=== PATIENT | female | born 2000 | race African-American/Black ===

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

== ENCOUNTER 2022-02-22 22:17 | Emergency (ER) | payer OTHER, SELFPAY ==
[2022-02-22 22:18] VITALS: BP 123/69; PULSE 79; RESP 16; TEMP 36.2; O2SAT 100; BMI 23.2
--- NOTE | 2022-02-22 22:50 | EDS_ITS ---
HPI History of Present Illness Chief Complaint: Chest Pain Informant: patient Onset/Context/Timing Onset: Hours (several) Activity at onset: gradual and onset Timing: Continuous and Waxes and wanes Current Severity: Moderate Maximum Severity: Severe Worsened By: Nothing Relieved By: Nothing Associated Symptoms: Positive for Nausea; Negative for Vomiting, Diaphoresis, Dyspnea, Cough, Lightheadedness or Palpitations Narrative Narrative: Patient states about 30 or 45 minutes after eating [employer] tonight, she started having discomfort in her lower chest/upper abdomen along with some nausea that felt like a band all the way around to her bra line and across her back. No urinary symptoms. No vomiting. No dyspnea but she states it hurts worse to take a really deep breath and to move, she points to her lower sternum where this discomfort is. She has no known medical problems and she is a college student at the local college. She has never had this before. The pain was severe and all the way across and around. No history of any abdominal surgeries in the past. She states that the discomfort has let up, she has not taken anything for it except for some antiacid it was given to her by the wellness center but it did not seem to help quickly. [facility] Medical History Cubital tunnel syndrome on left Home Medications NK 02/22/22 [History Last Taken Unknown] Allergy/AdvReac Type Severity Reaction Status Date / Time latex Allergy Itching Verified 02/22/22 22:17 pineapple Allergy Hives Verified 02/22/22 22:17 Social History Smoking Status: Never smoker ROS ROS ED Constitutional Constitutional ED: Denies chills or fever(s) Eyes Eyes: Denies change in vision or diplopia ENT ENT ED: Denies rhinorrhea or sore throat Cardiovascular Cardiovascular: Reports chest pain; Denies palpitations Respiratory/Chest Respiratory/Chest: Denies cough or dyspnea Gastrointestinal Gastrointestinal: Reports abdominal pain and nausea; Denies diarrhea or vomiting Genitourinary Genitourinary ED: Denies dysuria or hematuria Musculoskeletal Musculoskeletal: Reports back pain; Denies neck pain Integumentary Denies abscess or rash Neurologic Neurologic: Denies headache(s), paresthesias or weakness Psychiatric Psychiatric: Denies anxiety or suicidal thoughts EXAM Physical Exam Const Vital Signs: 02/22/22 22:18 02/23/22 00:30 Temperature 97.2 F L Temperature Source Temporal Pulse Rate 79 53 L Respiratory Rate 16 16 Blood Pressure 123/69 H 101/63 Blood Pressure Mean 87 75 Pulse Ox 100 99 Oxygen Delivery Method Room Air Room Air Positive well nourished and well developed General Appearance ED: well developed and NAD HEENT Reports moist mucous membranes normocephalic and atraumatic Eyes PERRL and EOMs intact bilaterally Neck full ROM and supple Resp normal respiratory effort and clear to auscultation bilaterally Cardio regular rate, regular rhythm and no murmurs GI non-distended GI Narrative: Moderate-severe tenderness epigastrium and right upper quadrant, less tender left upper quadrant, the rest of the abdomen is benign and nontender. No palpable masses. No guarding or rebound. Auscultation: normoactive bowel sounds Palpation: soft Back/Spine no CVA tenderness General Back: other FROM Extremity normal to inspection General Extremety ED: Negative for edema, pulses abnormal or tenderness General Extremity: Negative for edema or pulses abnormal Neuro oriented x3, CN's II-XII intact bilaterally and no sensory deficits noted Sensorium / Orientation: awake and alert Motor Exam: strength 5/5 throughout Skin no rashes or lesions noted and no wounds MDM MDM MDM Narrative Medical decision making narrative: Patient's symptoms are suspicious for biliary colic, although at 22 years old, healthy with a BMI of 23 she certainly does not fit the typical profile. She does not know if she has strong family history of gallstones. I was able to obtain an ultrasound, but it shows a contracted gallbladder, and no other acute abnormalities except for an incidental possible cystic mass in the tail of the pancreas. Since patient is at the local [employer] and has a PCP in [place] where she is from, we obtained the next recommended imaging test while she was here, CT with IV contrast. It confirms a 5.5 cm mass in the tail of the pancreas that is cystic in nature, differential is wide open here including benign and malignant etiologies which I discussed with the patient. She does not have a history of pancreatitis, nor did she have acute pancreatitis now, and I suspect that this is an incidental finding and not related to her abdominal pain. She will need to have further work-up, radiology is recommending an MRI next. Patient prefers to follow-up when she gets home in [place] soon for winter break, or she can follow-up with the wellness center to see if they could do other imaging, I would probably do a fasting ultrasound of her gallbladder next to rule out stones, and/or HIDA scan if she continues to have episodes of pain, this 1 was triggered by a fatty meal about an hour or so afterwards consistent with biliary colic. Discussed all this with her in addition to a fat-free diet, and reasons to return to the ER. She understands and is comfortable with this overall plan. Lab Data Attestation: I reviewed the patient's lab results. Labs: Laboratory Results - last 24 hr 02/22/22 02/22/22 02/23/22 23:02 23:02 00:20 WBC 8.3 RBC 3.80 L Hgb 11.5 L Hct 34.0 L MCV 89.5 MCH 30.3 MCHC 33.8 RDW Std Deviation 45.0 H RDW Coeff of Saleem 13.8 Plt Count 298 MPV 10.0 Immature Gran % (Auto) 0.600 Neut % (Auto) 57.2 Lymph % (Auto) 29.6 [place] % (Auto) 8.7 Eos % (Auto) 3.4 Baso % (Auto) 0.5 Absolute Neuts (auto) 4.8 Absolute Lymphs (auto) 2.46 Nucleated RBC % 0 Sodium 140 Potassium 3.8 Chloride 107 Carbon Dioxide 27.0 Anion Gap 6 BUN 10 Creatinine 0.88 Estim Creat Clear Calc 91.76 Est GFR (MDRD) Af Amer 105 Est GFR (MDRD) Non-Af 87 BUN/Creatinine Ratio 11.4 Glucose 106 Calcium 8.8 Total Bilirubin 0.60 AST 33 ALT 24 Alkaline Phosphatase 47 Troponin I High Sens 8 Total Protein 6.9 Albumin 3.6 Globulin 3.3 Albumin/Globulin Ratio 1.1 Lipase 98 Urine Color Yellow Urine Clarity Clear Urine pH 7.0 Ur Specific [place] 1.010 Urine Protein Negative Urine Glucose (UA) Normal Urine Ketones Negative Urine Occult Blood 10 H Urine Nitrite Negative Urine Bilirubin Negative Urine Urobilinogen Normal Ur Leukocyte Esterase 25 H Urine RBC 0 SEEN Urine WBC 0 SEEN Ur Squamous Epith Cells 5-10 SEEN Urine Bacteria 1+ Urine Mucus 0 SEEN Urine Test Negative Radiography Diagnostic Testing: Clinical Impression(s) from Imaging Studies Gallbladder Ultrasound 02/22/22 22:50 IMPRESSION: Possible complex cystic mass within the pancreas. Recommend follow-up CT of the abdomen with IV contrast nonemergently. Electronically Signed: Malcolm Crooks MD at 23:51 EST Reading Location ID and State: [address] [place] [address] , Service support , Chest X-Ray 02/22/22 23:25 IMPRESSION: Normal x-ray examination of the chest. Electronically Signed: Malcolm Crooks MD at 23:38 EST Reading Location ID and State: [address] [place] [address] , Service support , Abdomen/Pelvis CT 02/23/22 23:59 IMPRESSION: Pancreatic cystic mass 5.5 cm. Differential includes pancreatic pseudocyst, and neoplasm benign and malignant etiologies. Nonemergent MRI recommended for further characterization. Electronically Signed: Angela Grey MD at 1:20 EST , Rhythm Strip Rhythm Strip: Sinus Rhythm Rate: 60 Ectopy: None EKG Initial EKG: Attestation: I personally reviewed and interpreted this EKG as follows: Interpretation: Sinus Rhythm and No Acute Injury Pattern Comments: Normal EKG Discharge Plan Triage Chief Complaint: Chest Pain ED Provider: Livan Bruno Dx/Rx/DC Orders Clinical Impression: Pancreatic mass, Acute upper abdominal pain, Chest pain, unspecified Instructions: ED Abdominal Pain Gallstone Poss, ED Diet, Low Fat, ED Epigastric Pain Uncertain Cause Prescriptions: No Action NK Primary Care Provider: Gautam Cruz Referrals: Gautam Cruz MD [Primary Care Provider] - Doctor,Your [Non-Staff] - As soon as possible (and/or Wellness Center to see if they can further your testing sooner (if you want, or continue to have ren n/episodes)) Activity Restrictions/Additional Instructions: Consider low-fat/fat-free diet for the next 48 hours or so to decrease chance of recurrent pain. Disposition Disposition: Home, Self Care
--- NOTE | 2022-02-22 22:50 | US_ITS ---
STUDY: ABDOMINAL ULTRASOUND - RIGHT UPPER QUADRANT REASON FOR VISIT: Female, 22 years old upper abd pain TECHNIQUE: Ultrasound evaluation of the right upper quadrant was performed with real-time and static baltazar-scale imaging. TECHNICAL QUALITY: Adequate. COMPARISON: None. FINDINGS: Liver: The liver measures 16 cm. There is normal echogenicity of the liver. The bile ducts are within normal limits. There is hepatic color flow. The direction of portal flow is hepatopetal. There is no demonstrated mass lesion. Gallbladder: Contracted Common Bile Duct (C.B.D.): The common bile duct measures 3 mm. Pancreas: Complex septated cystic mass within or adjacent to the pancreatic tail measuring 4.7 x 3.7 x 3.9 cm. Right Kidney: Normal size of the right kidney. The right kidney measures 9.8 cm. Normal renal cortex. The right cortex measures 1.6 cm. There is no demonstrated renal mass or cyst. There is no right hydronephrosis. US/Gallbladder IMPRESSION: Possible complex cystic mass within the pancreas. Recommend follow-up CT of the abdomen with IV contrast nonemergently. Electronically Signed: Malcolm Crooks MD at 23:51 EST ,
[2022-02-22] MEDS: Ondansetron 4 MG/2 ML Vial IV (23:04)
[2022-02-22] MEDS: Ketorolac 30 MG/ML Syringe IV (23:04)
--- NOTE | 2022-02-22 23:25 | RAD_ITS ---
STUDY: X-RAY CHEST REASON FOR EXAM: Female, 22 years old. chest pain TECHNIQUE: Frontal and lateral views of the chest. COMPARISON: None. FINDINGS: The lungs are clear and expanded. There is no demonstrated pleural abnormality. Normal size heart. Normal mediastinum and fanny. Normal visualized pulmonary arteries. Normal visualized aortic arch and descending thoracic aorta. Normal visualized thoracic spine. Normal visualized ribs, clavicles, and shoulders. There is no demonstrated abnormality of the visualized soft tissue structures of the upper abdomen. RAD/Chest PA and Lateral IMPRESSION: Normal x-ray examination of the chest. Electronically Signed: Malcolm Crooks MD at 23:38 EST ,
[2022-02-22 23:28] LABS: Absolute Lymphocyte Count 2.46 X10^3/uL (0.83-4.51); Absolute Neutrophil Count 4.8 X10^3/uL (2.0-7.7); Basophil# 0.04 X10^3/uL; Basophil% 0.5 % (0-1); Eosinophil# 0.28 X10^3/uL; Eosinophils% 3.4 % (0-5); Hemoglobin 11.5 g/dL (12.0-15.0); Lymphocyte # 2.46 X10^3/ul (0.83-4.51); Lymphocyte % 29.6 % (19-41); Mean Corp Hgb Conc 33.8 g/dL (32-36); Mean Corpuscular Hgb 30.3 pg (27.0-32.0); Mean Corpuscular Volume 89.5 fL (81-99); Monocyte# 0.72 X10^3/uL; Monocyte% 8.7 % (0-10); NRBC Flagged by Analyzer 0 % (0-5); Neutrophil # 4.77 X10^3/uL (2.7-7.7); Neutrophil % 57.2 % (47-70); Platelet Count 298 K/mm3 (150-450); RBC Distribution Width CV 13.8 % (11.6-14.6); White Blood Count 8.3 K/mm3 (4.4-11.0)
[2022-02-22 23:31] LABS: ALB/GLOB Ratio 1.1 RATIO (0.9-2.4); AST(SGOT) 33 U/L (15-37); Alanine Aminotransfer ALT/SGPT 24 U/L (13-56); Albumin, Serum 3.6 g/dL (3.2-5.0); Alkaline Phosphatase 47 U/L (45-117); Anion Gap 6 (5-15); BUN 10 mg/dL (7-18); BUN/Creat Ratio 11.4 RATIO (10-20); Calcium,Total 8.8 mg/dL (8.5-10.1); Chloride 107 mmol/L (98-107); Creatinine, Serum 0.88 mg/dL (0.55-1.02); EST Glomerular Filtration Rate 87 mL/min (>60); Est Glom Filt Rate - Afr Amer 105 mL/min (>60); Estimated Creatinine Clearance 91.76 ml/min; Globulin 3.3 g/dL (2.2-4.2); Glucose 106 mg/dL (74-106); Lipase 98 U/L (73-393); Potassium 3.8 mmol/L (3.5-5.1); Protein, Total 6.9 g/dL (6.4-8.2); Sodium Level 140 mmol/L (136-145); Troponin-I HS 8 pg/mL (3.0-54.0)
[2022-02-22] MEDS: 0.9% Normal Saline 1,000 ML 125 ML IV (23:34)
[2022-02-23 00:28] LABS: Mucous, Urine 0 SEEN /hpf (<or=2+); Red Blood Cells-Urine 0 SEEN /hpf (0-5); White Blood Cells 0 SEEN /hpf (0-5)
[2022-02-23 00:30] VITALS: BP 101/63; PULSE 53; RESP 16; O2SAT 99
[2022-02-23 00:30] LABS: Color, Urine Yellow (Yellow); Glucose, Dipstick Normal (Normal); Ketone-Dipstick Negative (Negative); Leukocyte Esterase-Dipstick 25 /ul (Negative); Nitrite-Dipstick Negative (Negative); Occult Blood-Urine 10 /ul (Negative); Protein-Dipstick Negative (Negative); Urine Bilirubin Dipstick Negative (Negative); Urine Clarity Clear (Clear); Urine Urobilinogen Normal (Normal)
[2022-02-23 00:34] LABS: Internal QC Validated? YES +Cl - CLEAR BKGD; Pregnancy, Urine Negative Negative
[2022-02-23 00:43] LABS: Bacteria 1+ /hpf (None Seen); Squamous Epithelial Cells - UA 5-10 SEEN /hpf (5-10)
[2022-02-23 02:13] VITALS: BP 103/64; PULSE 55; RESP 15; O2SAT 99
--- NOTE | 2022-02-23 23:59 | CT_ITS ---
STUDY: CT ABDOMEN AND PELVIS WITH CONTRAST REASON FOR EXAM: Female, 22 years old. upper abd pain, abn us pancreas RADIATION DOSAGE (If Supplied By Facility): CTDIvol = ( 9.37 ) mGy, DLP = ( 450.17 ) mGycm TECHNIQUE: Transaxial images were obtained from the dome of the diaphragm to the symphysis pubis without oral contrast. IV 100mL Isovue-370 was administered. Sagittal and coronal images were reconstructed. Individualized dose optimization techniques were used for this CT. COMPARISON: None. FINDINGS: LOWER CHEST: Unremarkable. LIVER: Unremarkable. GALLBLADDER/BILE DUCTS: Gallbladder contracted. PANCREAS: There is a well defined 5.5 x 4.3 x 4.4 cm low-attenuation cystic lesion in the tail. The lesion abuts and displaces the splenic vein. No adjacent stranding or fluid. SPLEEN: Unremarkable. ADRENAL GLANDS: Unremarkable. KIDNEYS / URETERS: Unremarkable. BOWEL / MESENTERY: Unremarkable. No bowel obstruction. APPENDIX: Identified and normal. No evidence of acute appendicitis. PERITONEUM: No free air. No free fluid. VESSELS: Abdominal aorta is normal caliber. RETROPERITONEUM: Unremarkable. REPRODUCTIVE ORGANS: 2.5 cm cyst /follicle in the right ovary. BLADDER: Minimally distended. ABDOMINAL WALL: Unremarkable. BONES: No acute abnormality. OTHER: None. CT/Abdomen/Pelvis W IV Cont ONLY IMPRESSION: Pancreatic cystic mass 5.5 cm. Differential includes pancreatic pseudocyst, and neoplasm benign and malignant etiologies. Nonemergent MRI recommended for further characterization. Electronically Signed: Angela Grey MD at 1:20 EST ,
--- NOTE | 2022-03-02 14:39 | CASEMGMT ---
INCIDENTAL FINDINGS F/U -Per [facility] 02/22/22 report: CT/Abdomen/Pelvis W IV Cont ONLY IMPRESSION: Pancreatic cystic mass 5.5 cm.? Differential includes pancreatic pseudocyst, and neoplasm benign and malignant etiologies.? Nonemergent MRI recommended for further characterization. -TC to pt regarding the above. Pt is a student. Pt stated she took her scan results home. Per Pt, a surgeon with [facility] reviewed the scan results and further testing has been scheduled. Pt denied needing any assistance in scheduling and denied any further needs.
== END 2022-02-23 02:14 | disposition home or self-care (01) ==
PROVIDERS: Emergency Provider Emergency Medicine; PCP Pediatrics; Visit Provider Emergency Medicine
DX: K86.89 Other specified diseases of pancreas (principal); R07.9 Chest pain, unspecified; R11.0 Nausea; R10.10 Upper abdominal pain, unspecified
CPT/HCPCS: 71046; 74177; 76705; 80053; 81001; 81025; 83690; 84484; 85025; 93005; 96361; 96374; 96375; 99283; Q9967; A4216; J2405

== ENCOUNTER 2023-01-11 00:33 | Emergency (ER) | payer OTHER, SELFPAY ==
[2023-01-11 00:35] VITALS: BP 118/80; PULSE 71; RESP 15; TEMP 36.4; O2SAT 100; BMI 23.1
[2023-01-11 00:56] LABS: Bedside Glucose 97 mg/dL (74-106)
[2023-01-11 01:17] LABS: Bacteria 0 SEEN /hpf (None Seen); Mucous, Urine 0 SEEN /hpf (<or=2+); Red Blood Cells-Urine 0 SEEN /hpf (0-5); Squamous Epithelial Cells - UA 0 SEEN /hpf (5-10); White Blood Cells 0 SEEN /hpf (0-5)
[2023-01-11 01:19] LABS: Color, Urine Yellow (Yellow); Glucose, Dipstick Normal (Normal); Ketone-Dipstick Negative (Negative); Leukocyte Esterase-Dipstick Negative /ul (Negative); Nitrite-Dipstick Negative (Negative); Occult Blood-Urine 10 /ul (Negative); Protein-Dipstick 15 mg/dl (Negative); Urine Bilirubin Dipstick Negative (Negative); Urine Clarity Clear (Clear); Urine Urobilinogen Normal (Normal)
[2023-01-11 01:41] LABS: Internal QC Validated? YES +Cl - CLEAR BKGD; Pregnancy, Urine Negative Negative
--- NOTE | 2023-01-11 01:52 | EX.ED.DYSGE1 ---
HPI History of Present Illness Chief Complaint: Hyperglycemia Informant: patient Narrative Narrative: Patient is a 22-year-old female who states that in the last 6 months she had to have half of her pancreas removed. She states that after having this procedure she then became diabetic and has been monitoring her blood sugar and using insulin. She states that today the values were in the 180s and throughout the day they have been slightly trending down but have not reached below 140. She denies any cough congestion abdominal pain nausea vomiting diarrhea dysuria or concern for . However as she cannot get her blood sugars below 100 she comes in for evaluation [facility] Medical History Cubital tunnel syndrome on left Home Medications NK 02/22/22 [History Last Taken Unknown] Allergy/AdvReac Type Severity Reaction Status Date / Time latex Allergy Itching Verified 01/11/23 00:40 pineapple Allergy Hives Verified 01/11/23 00:40 Social History Smoking Status: Never smoker ROS ROS ED Constitutional Constitutional ED: Denies chills or fever(s) Eyes Eyes: Denies change in vision ENT ENT ED: Denies sore throat Cardiovascular Cardiovascular: Denies chest pain Respiratory/Chest Respiratory/Chest: Denies cough or dyspnea Gastrointestinal Gastrointestinal: Denies abdominal pain, diarrhea, nausea or vomiting Genitourinary Genitourinary ED: Denies dysuria Musculoskeletal Musculoskeletal: Denies myalgias Integumentary Denies rash Neurologic Neurologic: Denies headache(s) Hematologic/Lymphatic Hematologic/Lymphatic: Denies easy bleeding or easy bruising EXAM Physical Exam Const Vital Signs: 01/11/23 00:35 01/11/23 00:34 01/11/23 00:41 Temperature 97.6 F L Temperature Source Temporal Oral Pulse Rate 71 Respiratory Rate 15 Respiratory Effort Normal Non-Labored Respiratory Pattern Normal Blood Pressure 118/80 Blood Pressure Mean 92 Pulse Ox 100 Oxygen Delivery Method Room Air Positive well nourished and well developed General Appearance ED: well developed; Negative for pallor HEENT Reports moist mucous membranes HEENT Narrative: No signs of infection noted in the posterior pharynx Eyes PERRL and EOMs intact bilaterally General Eye ED: Negative for scleral icterus Neck supple Neck Narrative: No nuchal rigidity or meningeal signs Resp normal respiratory effort and clear to auscultation bilaterally Cardio regular rate and regular rhythm GI normal to inspection, nondistended, normoactive bowel sounds, non-tender, non-distended and no masses Auscultation: normoactive bowel sounds Palpation: soft Extremity normal to inspection Neuro oriented x3 and CN's II-XII intact bilaterally Sensorium / Orientation: alert Motor Exam: strength 5/5 throughout Psych mental status grossly normal Skin no rashes or lesions noted General Skin Exam: Negative for jaundice or pallor MDM MDM MDM Narrative Medical decision making narrative: Patient presented to the ER with stable vitals. She reported her blood sugar have been elevated throughout the day and therefore there is concern for DKA versus HHS versus versus secondary infection such as UTI versus pneumonia as the cause of her reported persistently elevated blood sugar. An Accu-Chek was performed on her initial evaluation and her blood sugar is technically normal with a value of 97. Based on this normal value and stable vitals I do not feel there is need for further work-up. I did elect to perform a noninvasive urine sample which does not show any spilling of glucose into the urine and no signs of . At this time as the patient has stable vitals and her blood sugar is technically normal concern for DKA or HHS or a secondary infective process elevating it is very low and patient is otherwise safe for discharge History & Record Review Discussion w/independent historian: Patient Lab Data Attestation: I reviewed the patient's lab results. Labs: Laboratory Results - last 24 hr 01/11/23 01/11/23 00:38 01:10 Urine Color Yellow Urine Clarity Clear Urine pH 7.0 Ur Specific [place] 1.010 Urine Protein 15 H Urine Glucose (UA) Normal Urine Ketones Negative Urine Occult Blood 10 H Urine Nitrite Negative Urine Bilirubin Negative Urine Urobilinogen Normal Ur Leukocyte Esterase Negative Urine RBC 0 SEEN Urine WBC 0 SEEN Ur Squamous Epith Cells 0 SEEN Urine Bacteria 0 SEEN Urine Mucus 0 SEEN Urine Test Negative POC Glucose 97 Discharge Plan Triage Chief Complaint: Hyperglycemia ED Provider: William Dent Dx/Rx/DC Orders Clinical Impression: Insulin dependent diabetes mellitus Instructions: Diabetes: Living Your Life Prescriptions: No Action NK Primary Care Provider: Care Physician,No Primary Referrals: Care Physician,No Primary [Primary Care Provider] - Disposition Disposition: Home, Self Care Discharge Date/Time: 01/11/23 02:09
== END 2023-01-11 02:09 | disposition home or self-care (01) ==
PROVIDERS: Emergency Provider Emergency Medicine; Visit Provider Emergency Medicine
DX: E11.65 Type 2 diabetes mellitus with hyperglycemia (principal)
CPT/HCPCS: 81001; 81025; 82962; 99282; A4216